=== PATIENT | female | born 1950 | race Caucasian/White ===

== ENCOUNTER → 2021-08-01 13:19 | Outpatient (BNVA) | payer MEDICARE, OTHER, SELFPAY | PROVIDERS: Family Provider Family Medicine; Visit Provider Internal Medicine | DX: E05.90 Thyrotoxicosis, unspecified without thyrotoxic crisis or storm (principal); Z86.39 Personal history of other endocrine, nutritional and metabolic disease; Z86.16 Personal history of COVID-19; Z87.891 Personal history of nicotine dependence | CPT/HCPCS: 80053; 83516; 84439; 84443; 84480; 85025; 86376; 86800; 99204 ==